=== PATIENT | male | born 1950 | race Caucasian/White ===

== ENCOUNTER 2019-07-06 21:33 | Emergency (ER) | payer MEDICARE ==
[2019-07-06 21:38] VITALS: BP 169/98
[2019-07-06] MEDS ORDERED: DOXYcycline CAP(*) 100 MG PO ONE (21:49)
--- NOTE | 2019-07-06 21:54 | ED ---
Bite Injury/Animal - HPI Summary HPI Summary: This pt is a 68 Y/O M presenting to [facility] with a CC of two tick bites on his back that were present since 07/04/2019. He states that he has increased his hiking over the past couple weeks and states that he noticed the ticks since they began becoming itchy. He states that he pulled the ticks off [employer]. He currently denies any fevers, rash, headaches, SOB, CP, N/V, and neck pain. He states that he has a PMHx of HTN. He states no aggravating or alleviating factors. - History of Current Complaint Chief Complaint: EDRashSkinAbscess Stated Complaint: PULLED TWO TICKS OUT PER PT Time Seen by Provider: 07/06/19 21:45 Hx Obtained From: Patient Onset of Injury: Happened days ago - 3 Type of Bite: Wild Animal - tick Has Animal Been Immunized?: N/A Severity Currently: None Pain Intensity: 0 Pain Scale Used: 0-10 Numeric Character: Puncture Aggravating Factor(s): Nothing Alleviating Factor(s): Nothing Associated Signs And Symptoms: Positive: Negative - rash, headaches, SOB, CP, N /V, and neck pain. Negative: Fever Animal Available for Observation: No Animal Control Notified: No - Allergies/Home Medications Allergies/Adverse Reactions: Allergies Allergy/AdvReac Type Severity Reaction Status Date / Time MS Latex [Latex] Allergy Mild Rash Verified 07/21/14 13:14 MS Morphine [Morphine] Allergy Mild Itching Verified 07/21/14 13:14 Home Medications: Home Medications Aspirin EC TAB* [Ecotrin EC TAB*] 325 mg PO BID 07/21/14 [History Confirmed ] Chlorthalidone TAB* [Hygroton TAB*] 25 mg PO DAILY 07/21/14 [History Confirmed 07/21/14] amLODIPine TAB* [Norvasc TAB*] 5 mg PO DAILY 07/21/14 [History Confirmed ] PMH/Surg Hx/FS Hx/Imm Hx Previously Healthy: Yes Endocrine/Hematology History: Denies: Hx Diabetes, Hx Thyroid Disease Cardiovascular History: Reports: Hx Hypertension Denies: Hx Pacemaker/ICD Respiratory History: Denies: Hx Asthma GI History: Denies: Hx Ulcer Sensory History: Reports: Hx Hearing Aid Psychiatric History: Denies: Hx Panic Disorder - Cancer History Hx Chemotherapy: No Hx Radiation Therapy: No - Surgical History Surgical History: Yes Surgery Procedure, Year, and Place: partial left knee replacement 07/18partial right knee 01/16,left shoulder partial rotator cuff - 08/15,full rotator cuff RT SIDE 08/14 - Immunization History Immunizations Up to Date: Yes Infectious Disease History: No Infectious Disease History: Denies: Hx Clostridium Difficile, Hx Hepatitis, Hx Human Immunodeficiency Virus (HIV), Hx of Known/Suspected MRSA, Hx Shingles, Hx Tuberculosis, Traveled Outside the [place] in Last 30 Days - Family History Known Family History: Positive: Hypertension - Social History Occupation: Retired Lives: With Family Alcohol Use: Rare Hx Substance Use: No Substance Use Type: Reports: None Hx Tobacco Use: No Smoking Status (MU): Never Smoked Tobacco Review of Systems Negative: Fever, Chills Negative: Sore Throat Negative: Chest Pain Negative: Shortness Of Breath Negative: Rash Negative: Headache All Other Systems Reviewed And Are Negative: Yes Physical Exam - Summary Physical Exam Summary: Constitutional: Well-developed, Well-nourished, Alert. (-) Distressed Skin: Warm, Dry, Two areas of erythema with central scabbing to the back. One over the R shoulder blade and one over the R flank. No retained tick parts. HENT: Normocephalic; Atraumatic Eyes: Conjunctiva normal Neck: Musculoskeletal ROM normal neck. (-) JVD, (-) Stridor, (-) Tracheal deviation Cardio: Rhythm regular, rate normal, Heart sounds normal; Intact distal pulses; Radial pulses are 2+ and symmetric. (-) Murmur Pulmonary/Chest wall: Effort normal. (-) Respiratory distress, (-) Wheezes, (-) Rales Abd: Soft, (-) tenderness, (-) Distension, (-) Guarding, (-) Rebound Musculoskeletal: (-) Edema Lymph: (-) Cervical adenopathy Neuro: Alert, Oriented x3 Psych: Mood and affect Normal Triage Information Reviewed: Yes Vital Signs On Initial Exam: Initial Vitals Temp Pulse Resp BP Pulse Ox 97.6 F 78 16 169/98 97 07/06/19 21:35 07/06/19 21:35 07/06/19 21:35 07/06/19 21:35 07/06/19 21:35 Vital Signs Reviewed: Yes Procedures - Sedation Patient Received Moderate/Deep Sedation with Procedure: No Diagnostics - Vital Signs Vital Signs Temp Pulse Resp BP Pulse Ox 07/06/19 21:35 97.6 F 78 16 169/98 97 - Laboratory Lab Statement: Any lab studies that have been ordered have been reviewed, and results considered in the medical decision making process. Bite Injury Course/Dx - Course Course Of Treatment: Patient is here after moving to ticks from his back that have been there for 72 hours. Patient has no symptoms outside of that. Patient was given 200 mg of doxycycline and discharged - Diagnoses Provider Diagnosis: Tick bites Discharge ED - Sign-Out/Discharge Documenting (check all that apply): Patient Departure - discharge - Discharge Plan Condition: Good Disposition: HOME Patient Education Materials: Tick Bite (ED) Referrals: Yimi Azar MD [Primary Care Provider] - If Needed Additional Instructions: PLEASE FOLLOW UP WITH YOUR PRIMARY CARE PROVIDER IF YOU BEGIN TO DEVELOP A RASH , FEVERS, SOB, AND CHILLS. RETURN TO THE EMERGENCY DEPARTMENT FOR ANY WORSENING SYMPTOMS MENTIONED ABOVE. - Billing Disposition and Condition Condition: GOOD Disposition: Home - Attestation Statements Document Initiated by Stella: Yes Documenting Scribe: Mike Heller Provider For Whom Stella is Documenting (Include Credential): Gerald Gunter MD Scribe Attestation: Mike Arias scribed for Gerald Gunter MD on 07/07/19 at 0458. Scribe Documentation Reviewed: Yes Provider Attestation: The documentation as recorded by the Mike lim accurately reflects the service I personally performed and the decisions made by , Gerald Gunter MD Status of Scribe Document: Viewed
== END 2019-07-06 22:00 | disposition home or self-care (01) ==
LOC: ED 21:33
DX: S20.469A Insect bite (nonvenomous) of unspecified back wall of thorax, initial encounter (principal); W57.XXXA Bitten or stung by nonvenomous insect and other nonvenomous arthropods, initial encounter; Y92.9 Unspecified place or not applicable; I10 Essential (primary) hypertension; Z79.899 Other long term (current) drug therapy
CPT/HCPCS: 99281; A9270-GY

== ENCOUNTER 2020-11-13 09:18 | Inpatient (IN) ==
[2020-11-13 10:14] LABS: ABS Basophils 0.1 10^3/ul (0-0.2); ABS Eosinophils 0.1 10^3/ul (0-0.6); ABS Lymphocytes 2.2 10^3/ul (1.0-4.8); ABS Monocytes 0.8 10^3/ul (0-0.8); ABS Neutrophils 4.9 10^3/ul (1.5-7.7); Eosinophil % 0.8 %; Hematocrit 47 % (42-52); Hemoglobin 16.3 g/dL (14.0-18.0); Lymphocyte % 27.9 %; Mean Corpuscular HGB Conc 35 g/dL (31-36); Mean Corpuscular Hemoglobin 33 pg (27-31); Mean Corpuscular Volume 97 fL (80-94); Nucleated Red Blood Cells % 0.1; Platelet Count 175 10^3/uL (150-450); Red Blood Count 4.87 10^6 /uL (4.18-5.48); Red Cell Distribution Width 13 % (10-15)
[2020-11-13 10:22] LABS: INR 1.13 (0.86-1.15)
[2020-11-13 10:33] LABS: ALT 47 U/L (7-52); Albumin 4.4 g/dL (3.2-5.2); Albumin/Globulin Ratio 1.3 (1-3); Alkaline Phosphatase 49 U/L (35-149); Blood Urea Nitrogen 26 mg/dL (6-24); CO2 Carbon Dioxide 27 mmol/L (22-32); Calcium 9.8 mg/dL (8.6-10.3); Chloride 102 mmol/L (101-111); EGFR African American 86.9 (>60); EGFR Non-African American 71.8 (>60); Globulin 3.3 g/dL (2-4); Glucose 86 mg/dL (70-100); Sodium 137 mmol/L (135-145); Total Protein 7.7 g/dL (6.4-8.9)
[2020-11-13 10:41] LABS: Troponin I 0.04 ng/mL (<0.03)
[2020-11-13] MEDS ORDERED: NS 0.9% 1000 ml BAG 1,000 ML IV ONE (10:51)
[2020-11-13] MEDS ORDERED: Metoprolol Tartrate 5 mg VIAL 5 ml VIAL (1 mg/ml) IV ONE (10:51)
[2020-11-13] MEDS ORDERED: Adenosine 3 MG/ML 2 ml VIAL (6 mg) IV PUSH ONE ×2 (11:05)
[2020-11-13 11:35] LABS: Anion Gap 8 mmol/L (2-11)
[2020-11-13] MEDS ORDERED: Diltiazem IV push/loading dose 5 MG/ML 5 ML vial (25 mg) IV SLOW PU ONE (11:35)
[2020-11-13 11:36] LABS: Magnesium 2.3 mg/dL (1.9-2.7)
[2020-11-13] MEDS ORDERED: Diltiazem (ADVAN VIAL) 100 MG/100 ML ADDV.BAG IV SCH ×2 (12:00→13:00)
[2020-11-13] MEDS ORDERED: Iohexol 350 (CONTRAST) 500 ML MDV IV ONE (12:13)
[2020-11-13 13:00] LABS: Potassium Redraw 4.2 mmol/L (3.5-5.0)
[2020-11-13 13:06] LABS: AST Redraw 37 U/L (13-39)
[2020-11-13 14:26] LABS: Troponin I 0.03 ng/mL (<0.03)
[2020-11-13] MEDS: Enoxaparin 100 MG/ML SYR SUBCUT SCH (16:05)
[2020-11-13 16:20] LABS: Troponin I 0.04 ng/mL (<0.03)
[2020-11-14] MEDS: Enoxaparin 100 MG/ML SYR SUBCUT SCH ×2 (03:05→09:00)
[2020-11-14] MEDS ORDERED: Flumazenil 0.5 mg/5 ml 0.1 MG/ML 5 ml VIAL ONE (11:35)
[2020-11-14] MEDS ORDERED: Naloxone 0.4 mg VIAL 0.4 mg/ml 1 ml VIAL ONE (11:35)
[2020-11-14] MEDS ORDERED: Midazolam 5 mg/5 ml VIAL 1 mg/ml 5 ml VIAL (5 mg) ONE (11:35)
[2020-11-14] MEDS ORDERED: fentaNYL 100 mcg/2 ml 50 MCG/ML VIAL ONE ×2 (11:35→12:46)
[2020-11-14 15:58] VITALS: BP 111/71
== END 2020-11-14 18:38 | disposition home or self-care (01) | DRG 310 ==
LOC: ED 09:18 → MEDTELE 14:57
PROVIDERS: ADMIT Hospitalist; ATTEND Hospitalist

== ENCOUNTER 2021-01-28 18:17 | Inpatient (IN) ==
[2021-01-28] MEDS: HYDROmorphone 0.5 MG/0.5 ML SYRINGE IV SLOW PU PRN (16:30)
[2021-01-28] MEDS: fentaNYL 100 mcg/2 ml 50 MCG/ML VIAL IV PRN ×3 (16:38→16:49)
[2021-01-28] MEDS: Ondansetron 4 mg VIAL 2 MG/ML 2 ml VIAL IV PRN ×2 (17:58→23:55)
[~2021-01-28 18:17] MED LIST: Acetaminophen IV 1 GM/100ML 100 ML IV ONE; Buffered Lidocaine 1% SYRIN 1 ml INTRADERM ONE; Bupivacaine 0.5% SDV PF 30ML VIAL ONE; Dexamethasone IV 4 MG/ML VIAL 1 ml VIAL ONE; DiMENhydriNATE IV 50 mg/ml 1 ml VIAL IV PUSH PRN; DiMENhydriNATE IV 50 mg/ml 1 ml VIAL ONE; Famotidine IV 10 MG/ML 2 ml VIAL (20 mg) IV ONE; Famotidine IV 10 MG/ML 2 ml VIAL (20 mg) ONE; HYDROcodone/ACET. 7.5/325 LIQ 15 ML UDC PO PRN; HYDROmorphone 1 MG/1 ML SYRINGE ONE; Heparin 5000 UNITS/ML 1 mL VIAL ONE; Lactated Ringers 1000 ml BAG 1,000 ML IV SCH; Lidocaine 1% w EPI 1:200,000 SDV 30 ML VIAL ONE; Lidocaine 2% PF 5 ML VIAL ONE; Midazolam 2 mg/2 ml VIAL 1 mg/ml 2 ml VIAL (2 mg) ONE; Naloxone 0.4 mg VIAL 0.4 mg/ml 1 ml VIAL IV PRN; Ondansetron 4 mg VIAL 2 MG/ML 2 ml VIAL ONE; Phenylephrine 40 mcg/mL 10mL (400mcg) SYRINGE ONE; Propofol 10 MG/ML 20 ML BTL ONE; Rocuronium 50 mg VIAL 10 mg/ml 5 ml VIAL (50 mg) ONE; ceFAZolin 1 GM ADVAN 1 GM ADDV.VIAL IVPB ONE; ceFAZolin 2 GM in NS PREMIX 2 GM/100 ML BAG IVPB ONE; diPHENhydraMINE IV 50 MG/ML 1 ml VIAL (BENADRYL) SLOW PUSH PRN; fentaNYL 100 mcg/2 ml 50 MCG/ML VIAL ONE; fentaNYL 250 mcg/5 ml 50 MCG/ML 5 ml VIAL (250 MCG) ONE
[2021-01-28] MEDS: Lactated Ringers 1000 ml BAG 1,000 ML IV SCH (19:20)
[2021-01-28] MEDS: Heparin 5000 UNITS/ML 1 mL VIAL SUBCUT SCH (21:34)
[2021-01-29] MEDS: Lactated Ringers 1000 ml BAG 1,000 ML IV SCH ×2 (00:39→07:47)
[2021-01-29] MEDS: HYDROmorphone 0.5 MG/0.5 ML SYRINGE IV SLOW PU PRN ×2 (04:07→07:42)
[2021-01-29] MEDS: Heparin 5000 UNITS/ML 1 mL VIAL SUBCUT SCH ×2 (06:05→13:25)
[2021-01-29 11:23] VITALS: BP 128/69
[2021-01-29] MEDS ORDERED: D5W 1/2 NS KCl 20 meq 1000 ml 1,000 ML IV SCH (16:00)
[2021-01-31] MEDS ORDERED: Scopolamine PATCH Remove NOTE PATCH OFF ONE (12:00)
== END 2021-01-29 15:25 | disposition home or self-care (01) | DRG 621 ==
LOC: OR 18:17 → SSU 18:18
PROVIDERS: ADMIT Surgery; ATTEND Surgery

== ENCOUNTER 2023-12-16 05:37 | Observation (INO) ==
[~2023-12-16 05:37] MED LIST changes: -Acetaminophen IV 1 GM/100ML 100 ML IV ONE; -Buffered Lidocaine 1% SYRIN 1 ml INTRADERM ONE; -Bupivacaine 0.5% SDV PF 30ML VIAL ONE; -Dexamethasone IV 4 MG/ML VIAL 1 ml VIAL ONE; -DiMENhydriNATE IV 50 mg/ml 1 ml VIAL IV PUSH PRN; -DiMENhydriNATE IV 50 mg/ml 1 ml VIAL ONE; -Famotidine IV 10 MG/ML 2 ml VIAL (20 mg) IV ONE; -Famotidine IV 10 MG/ML 2 ml VIAL (20 mg) ONE; -HYDROcodone/ACET. 7.5/325 LIQ 15 ML UDC PO PRN; -HYDROmorphone 1 MG/1 ML SYRINGE ONE; -Heparin 5000 UNITS/ML 1 mL VIAL ONE; -Lactated Ringers 1000 ml BAG 1,000 ML IV SCH; -Lidocaine 1% w EPI 1:200,000 SDV 30 ML VIAL ONE; -Lidocaine 2% PF 5 ML VIAL ONE; +Metoclopramide 5 MG/ML VIAL (10 mg) IV PRN; -Midazolam 2 mg/2 ml VIAL 1 mg/ml 2 ml VIAL (2 mg) ONE; +NS 0.45% 1000 ml BAG 1,000 ML IV SCH; +Ondansetron 4 mg VIAL 2 MG/ML 2 ml VIAL IV PRN; -Ondansetron 4 mg VIAL 2 MG/ML 2 ml VIAL ONE; -Phenylephrine 40 mcg/mL 10mL (400mcg) SYRINGE ONE; -Propofol 10 MG/ML 20 ML BTL ONE; -Rocuronium 50 mg VIAL 10 mg/ml 5 ml VIAL (50 mg) ONE; -ceFAZolin 1 GM ADVAN 1 GM ADDV.VIAL IVPB ONE; -ceFAZolin 2 GM in NS PREMIX 2 GM/100 ML BAG IVPB ONE; -diPHENhydraMINE IV 50 MG/ML 1 ml VIAL (BENADRYL) SLOW PUSH PRN; -fentaNYL 100 mcg/2 ml 50 MCG/ML VIAL ONE; -fentaNYL 250 mcg/5 ml 50 MCG/ML 5 ml VIAL (250 MCG) ONE
[2023-12-16] MEDS: Scopolamine 1 mg/72hr PATCH TRANSDERM ONE (06:06)
[2023-12-16] MEDS: Buffered Lidocaine 1% SYRIN 1 ml INTRADERM ONE (06:06)
[2023-12-16] MEDS ORDERED: ceFAZolin 2 GM PREMIX 2 GM/50 ML BAG ONE (06:08)
[2023-12-16] MEDS ORDERED: Tranexamic Acid 1 GM/100ML BAG 2,000 MG/200 ML BAG IV ONE (06:08)
[2023-12-16] MEDS: Lactated Ringers 1000 ml BAG 1,000 ML IV SCH ×2 (06:18→12:11)
[2023-12-16 06:26] LABS: Rapid COVID-19 Molecular Undetected (Undetected)
[2023-12-16] MEDS ORDERED: ROPIVACAINE 5 MG/ML 30 ML BTL (0.5%) ONE ×2 (07:05→10:01)
[2023-12-16] MEDS ORDERED: Propofol 10 MG/ML 20 ML BTL ONE (07:21)
[2023-12-16] MEDS ORDERED: Lidocaine 2% PF 5 ML VIAL ONE (07:21)
[2023-12-16] MEDS ORDERED: Midazolam 2 mg/2 ml VIAL 1 mg/ml 2 ml VIAL (2 mg) ONE (07:31)
[2023-12-16] MEDS ORDERED: Phenylephrine IV 10 MG/ML 1 ml VIAL ONE (07:55)
[2023-12-16] MEDS ORDERED: Ondansetron 4 mg VIAL 2 MG/ML 2 ml VIAL ONE (08:00)
[2023-12-16] MEDS ORDERED: Dexamethasone IV 4 MG/ML VIAL 1 ml VIAL ONE (08:00)
[2023-12-16] MEDS ORDERED: Ondansetron ODT 4 mg TAB 4 MG TAB PO PRN (10:05)
[2023-12-16] MEDS ORDERED: Magnesium Hydroxide LIQ 30 ML UDC PO PRN (10:05)
[2023-12-16] MEDS ORDERED: Lactulose 30 ml UDC PO PRN (10:05)
[2023-12-16] MEDS ORDERED: Ondansetron 4 mg VIAL 2 MG/ML 2 ml VIAL IV PRN (10:05)
[2023-12-16] MEDS ORDERED: Morphine 2 MG/ML SYRINGE IV PRN (10:05)
[2023-12-16] MEDS ORDERED: fentaNYL 100 mcg/2 ml 50 MCG/ML VIAL ONE (10:56)
[2023-12-16] MEDS: fentaNYL 100 mcg/2 ml 50 MCG/ML VIAL IV PRN (10:59)
[2023-12-16] MEDS: Acetaminophen IV 1 GM/100ML 1,000 MG/100 ML BAG IV ONE (13:29)
[2023-12-16] MEDS: ceFAZolin 2 GM PREMIX 2 GM/50 ML BAG IV SCH (16:14)
[2023-12-16] MEDS: Magnesium Hydroxide LIQ 30 ML UDC PO SCH (21:26)
[2023-12-16] MEDS: Calcium Carb (TUMS) 500 mg CHEW TAB PO PRN (21:30)
[2023-12-17 06:49] LABS: Hematocrit 39.4 % (38-53); Hemoglobin 13.6 g/dL (13.2-16.3); Mean Platelet Volume 8.7 fL (7.5-11.2); Platelet Count 185 10^3/uL (150-450)
[2023-12-17 07:08] LABS: Calcium 9.2 mg/dL (8.6-10.3); Creatinine, Serum 0.75 mg/dL (0.67-1.17); Potassium 3.8 mmol/L (3.5-5.0); eGFR CKD-EPI 96.5 (>60)
[2023-12-17] MEDS: Vitamin THERAPEUTIC TAB PO SCH (08:34)
[2023-12-17 10:39] VITALS: BP 128/69
== END 2023-12-17 12:50 | disposition home or self-care (01) ==
LOC: SSU 05:37 → OR 05:37
PROVIDERS: ADMIT Orthopaedic Surgery Adult Reconstructive Orthopaedic Surgery; ATTEND Orthopaedic Surgery Adult Reconstructive Orthopaedic Surgery